=== PATIENT | male | born 1950 | race American Indian/Alaskan Native ===

== ENCOUNTER 2021-09-21 07:30 | Day surgery (SDC) | payer MEDICARE ==
[2021-09-21] MEDS ORDERED: SODIUM CHLORIDE 0.9% 500 ML 500 ML IV SCH (08:00)
[2021-09-21] MEDS ORDERED: ASPIRIN EC 325 MG TAB PO SCH (08:00)
[2021-09-21 08:29] LABS: Basophils % (Auto) 0.6 % (0.0-1.8); Eosinophils # (Auto) 0.2 K/mm3 (0.0-0.4); Eosinophils % (Auto) 3.5 % (0.0-4.3); Hematocrit 41.7 % (35.5-45.6); Hemoglobin 13.7 gm/dl (11.8-15.2); Lymphocytes # (Auto) 1.5 K/mm3 (1.2-5.4); Lymphocytes % (Auto) 26.1 % (13.4-35.0); Mean Corpuscular HGB Conc 33 % (32-34); Mean Corpuscular Volume 87 fl (84-94); Monocytes # (Auto) 0.4 K/mm3 (0.0-0.8); Monocytes % (Auto) 7.2 % (0.0-7.3); Platelet Count 161 K/mm3 (140-440); Red Blood Count 4.78 M/mm3 (3.65-5.03); Red Cell Distribution Width 13.7 % (13.2-15.2)
[2021-09-21 08:38] LABS: INR 0.89 (0.87-1.13)
[2021-09-21 08:44] LABS: BUN/Creatinine Ratio 14; Blood Urea Nitrogen 13 mg/dL (9-20); Calcium 8.9 mg/dL (8.4-10.2); Hemolysis Index 6
[2021-09-21] MEDS ORDERED: NITROGLYCERIN SYRINGE 3 ML ONE (08:51)
[2021-09-21] MEDS: LIDOCAINE (2%) 20 MG/1 ML VIAL 20 ML MDV INFILTRATI ONE ×2 (08:55→09:43)
[2021-09-21] MEDS: HEPARIN 10,000 UNITS/10 ML VIAL ONE ×2 (08:56→09:52)
[2021-09-21] MEDS ORDERED: ATROPINE 0.1% (1 MG/10 ML) CARDIAC SYRINGE ONE (09:02)
--- NOTE | 2021-09-21 09:15 | Electrocardiograph Report ---
[facility] Test Date: 2021-09-21 Test Time: 08:18:44 Pat Name: ARIA CANDELARIA Department: Room: Gender: M [employer] Operator: KAYLA : 1950 Requested By: MAU GALVAN Order Number: [id number] Reading MD: Mau Galvan Measurements Intervals Lee Rate: 79 P: CA: QRS: -23 QRSD: 77 T: QT: 451 QTc: 518 Interpretive Statements nsr prolonged ist degree av block Paired ventricular premature complexes nonspecific st-t No previous ECG available for comparison Electronically Signed On 09-21-2021 9:14:43 EDT by Mau Galvan
[2021-09-21] MEDS: fentaNYL 100 MCG/2 ML INJ ONE ×3 (09:20→09:45)
[2021-09-21] MEDS: MIDAZOLAM 2 MG/2 ML INJ ONE ×2 (09:20→09:40)
[2021-09-21] MEDS ORDERED: PHENYLEPHRINE/NS 1,000 MCG/10 ML SYRINGE (OR USE) IV ONE (09:31)
--- NOTE | 2021-09-21 10:08 | Short Stay Summary ---
Short Stay Documentation Date of service: 09/21/21 - History H&P: obtained from office - Allergies and Medications Current Medications: Allergies No Known Allergies Allergy (Verified 09/21/21 07:58) Home Medications Medication Instructions Recorded Confirmed Last Taken Type Losartan [Cozaar] 25 mg PO DAILY 09/21/21 09/21/21 09/20/21 History 25 mg Metformin HCl [metFORMIN] 1,000 mg PO BID 09/21/21 09/21/21 09/20/21 History 1000 mg Simvastatin 20 mg PO HS 09/21/21 09/21/21 09/20/21 History 20 mg glipiZIDE [Glucotrol] 5 mg PO DAILY 09/21/21 09/21/21 09/20/21 History 5 mg Active Medications Aspirin (Aspirin Ec 325 Mg Tab) 325 mg PO ONCE@0800 PB Stop: 09/21/21 17:00 Last Admin: 09/21/21 08:45 Dose: 325 mg Documented by: Sodium Chloride (Nacl 0.9% 500 Ml) 500 mls @ 50 mls/hr IV DIRECT PB Stop: 09/21/21 17:59 Last Admin: 09/21/21 08:45 Dose: 50 mls/hr Documented by: - Physical exam Integumentary: other (dressing clean, dry, and intact. No bleeding or hematoma) - Brief post op/procedure progress note Date of procedure: 09/21/21 Pre-op diagnosis: NSVT; cardiomyopathy Anesthesia: local Estimated blood loss: minimal - Hospital course Hospital course: Patient underwent cardiac cath with no complications and tolerated procedure well - Disposition Condition at discharge: Good Disposition: 01 HOME / SELF CARE / HOMELESS Short Stay Discharge Plan Activity: advance as tolerated Diet: low fat, low cholesterol, low salt Wound: keep clean and dry, per your surgeon's advice Special Instructions: hold Metformin (x2 days) Additional Instructions: Hold metformin for 48hours following procedure Follow up with: KARLY JORDAN MD [Primary Care Provider] - 7 Days YASH LOO MD [Staff Physician] - 10/12/21 9:30 am (Patient has follow up with Dr. Loo on 12/12/2020 at 9:30am in our [place] location. )
[2021-09-21] MEDS ORDERED: HEPARIN/NS 5000 UNIT/500ML 1,000 ML IR ONE (10:44)
[2021-09-21 13:22] VITALS: BP 138/60
--- NOTE | 2021-09-21 13:41 | Cardiac Catherization Report ---
DATE OF SERVICE: 09/21/2021 CARDIAC CATHETERIZATION ORDERING PHYSICIAN: Dr. Loo. CLINICAL INFORMATION: A 71-year-old -[place]ag[place] male with diabetes, hypertension, hyperlipidemia, cardiomyopathy, is here for left heart catheterization with positive stress test. The patient was done with moderate sedation, started 9:40, finished at 9:58, 18 minutes of moderate sedation. DESCRIPTION OF PROCEDURE: Procedure was done via the right radial artery, sterile technique and local anesthesia. A 6-[place] radial sheath inserted. Left system engaged with JL3.5 catheter. Following findings: Left main is medium to large caliber vessel, patent. LAD is a medium caliber that is patent. Diagonal 1 small caliber vessel. Ramus is a small to medium caliber vessel, patent with mild luminal irregularities. Circumflex and AV groove is a small to medium caliber vessel. Proximal is patent, then it goes to the very small OM1 that is patent after OM1 to OM2, there is a proximal 60-70% lesion of a less than 2 mm vessel. RCA is a large caliber vessel, was patent with mild luminal irregularities from the mid to distal, PDA and PLV small to medium caliber vessel, patent with mild luminal irregularities. LV gram done in SPANISH and HAQUE view shows mild LV dysfunction, EF approximately 40-45%. LVEDP 15 mmHg, LV is 140, aortic is 140/51. No gradient across the aortic valve on pullback. A 5-[place] catheter all taken over guidewire. A 6-[place] radial sheath was discontinued. Radial band applied. No hematoma, no bleeding. SUMMARY: Left main patent, LAD patent, ramus patent. Mild luminal irregularities. Circumflex patent, OM1 small caliber, OM2 proximal 60-70% of a 2 mm vessel. RCA is patent with mild luminal irregularities. Mild LV dysfunction. Discussed this with the patient and the patient's family. Aggressive medical therapy. TID: [id number] RECEIPT: [id number] BO/ISAK/BOUCHRA MTDRancho
== END 2021-09-21 14:00 | disposition home or self-care (01) ==
LOC: CATHLABREC 07:30
PROVIDERS: ATTEND Internal Medicine
DX: R94.31 Abnormal electrocardiogram [ECG] [EKG] (principal); I42.8 Other cardiomyopathies; E11.9 Type 2 diabetes mellitus without complications; I49.5 Sick sinus syndrome; I47.2 Ventricular tachycardia; I47.1 Supraventricular tachycardia; G47.33 Obstructive sleep apnea (adult) (pediatric); I49.3 Ventricular premature depolarization; I44.0 Atrioventricular block, first degree; I10 Essential (primary) hypertension; E78.00 Pure hypercholesterolemia, unspecified; K21.9 Gastro-esophageal reflux disease without esophagitis; M19.90 Unspecified osteoarthritis, unspecified site; F17.210 Nicotine dependence, cigarettes, uncomplicated; Z79.84 Long term (current) use of oral hypoglycemic drugs; Z79.899 Other long term (current) drug therapy; Z90.49 Acquired absence of other specified parts of digestive tract; Z98.890 Other specified postprocedural states; Z72.89 Other problems related to lifestyle
CPT/HCPCS: 36415; 80048; 85025; 85610; 85730; 93005; 93458; 99156; C1894; J1644; J2250; J3010; J7040; J0461; J2370; Q9967